=== PATIENT | female | born 1965 | race Hispanic/Latino ===

== ENCOUNTER 2018-06-28 23:56 | Observation (INO) | payer OTHER ==
[~2018-06-28] VITALS: Ht 157.5 cm; Wt 125.6 kg
[2018-06-29] MEDS ORDERED: ACETAMINOPHEN EXTRA STRENGTH 500 MG TABLET ONE (00:15)
[2018-06-29] MEDS ORDERED: BENZONATATE 100 MG CAPSULE PO ONE (00:30)
[2018-06-29 00:32] LABS: BASOPHILS % (AUTO) 0.5 % (0.0-5.0); EOSINOPHILS % (AUTO) 0.3 % (0.0-8.0); HEMATOCRIT 43.3 % (36-48); LYMPHOCYTES % (AUTO) 9.4 % (21.0-51.0); MEAN CORPUSCULAR HEMOGLOBIN 25.6 pg (27.0-33.0); MEAN CORPUSCULAR HGB CONC 33.4 g/dL (32.0-36.0); MEAN CORPUSCULAR VOLUME 76.7 fL (79-99); NEUTROPHILS % (AUTO) 84.8 % (40.0-77.0); PLATELET COUNT (AUTO) 297 K/uL (130-400); RED BLOOD CELL COUNT(AUTO) 5.64 MIL/uL (4.00-5.50); RED CELL DISTRIBUTION WIDTH 16.2 % (11.0-15.5); WHITE BLOOD COUNT (AUTO) 15.9 K/uL (4.8-10.8)
[2018-06-29] MEDS ORDERED: IPRATROPIUM/ALBUTEROL SULFATE 3 ML SOLUTION IH ONE ×2 (00:32→05:04)
[2018-06-29 00:38] LABS: CARBON DIOXIDE 25 mmol/L (21-32); CHLORIDE 99 mmol/L (101-111); CREATININE 0.8 mg/dL (0.5-1.5); GLOMERULAR FILTR. RATE CALC 79 mL/min (>60); GLUCOSE,RANDOM 145 mg/dL (70-105); POTASSIUM 3.6 mmol/L (3.5-5.1); SODIUM SERUM 135 mmol/L (136-145); UREA NITROGEN, BLOOD 9 mg/dL (7-18)
[2018-06-29 00:43] LABS: INR 1.06 (0.85-1.15); PROTHROMBIN TIME 11.1 SEC (9.6-11.6)
[2018-06-29 00:44] LABS: APPEARANCE,URINE Clear (CLEAR); BILIRUBIN,URINE Small (NEGATIVE); COLOR,URINE Dark Yellow (YELLOW); GLUCOSE, URINE (UA) Negative (NEGATIVE); KETONES,URINE Trace mg/dL (NEGATIVE); LEUKOCYTE ESTERASE ,URINE Trace (NEGATIVE); NITRATE,URINE Negative (NEGATIVE); OCCULT BLOOD,URINE Small (NEGATIVE); PH,URINE 6.5 (5.0-8.0); PROTEIN,URINE POS 1+ mg/dL (NEGATIVE)
[2018-06-29 00:47] LABS: RAPID GROUP A STREP NEGATIVE (NEGATIVE)
[2018-06-29 00:51] LABS: ALANINE AMINOTRANSFERASE 39 U/L (12-78); ALBUMIN 3.6 g/dL (3.5-5.0); ASPARTATE AMINOTRANSFERASE 28 U/L (10-37); CREATINE KINASE, TOTAL 58 U/L (21-232); MYOGLOBIN 31 ng/mL (10-92); TOTAL PROTEIN, SERUM 8.6 g/dL (6.0-8.3); TROPONIN I < 0.04 ng/mL (0.00-0.06)
[2018-06-29 01:03] LABS: BACTERIA,URINE None Seen /HPF (None Seen); MUCUS,URINE Few LPF (None Seen); RBC,URINE 0-1 /HPF (0-1); SQUAMOUS EPITHELIAL CELL,UR Rare /HPF (0-2); WBC,URINE 0-1 /HPF (0-1)
[2018-06-29] MEDS ORDERED: AZITHROMYCIN 250 MG TABLET PO ONE (01:44)
[2018-06-29] MEDS ORDERED: CEFTRIAXONE SODIUM 1 GM ONE (01:44)
[2018-06-29] MEDS ORDERED: ALBUTEROL SULFATE 0.083% 2.5 MG/3 ML INH IH ONE (01:56)
[2018-06-29] MEDS ORDERED: BENZOCAINE/MENTH/CETYLPYRD CL 1 EACH LOZENGE MM ONE (03:46)
[2018-06-29 04:40] VITALS: BP 163/98
--- NOTE | 2018-06-29 04:50 | NUR ---
Admission Assessment Received pt from ED per wheelchair with spouse around, pt noted with dry, hacking coughing spell, trying to catch up her breath, RT around provided PRN breathing treatment. Routine admission assessment done, plan of care discuss, made aware on Observation status, 24-48 hours hospital stay depending on all the test & how she responds to treatment. Pt updated with all test being done in ED with all concern questions addressed. Pt verified regarding Flu/Pneu vaccination, refused stated she will think about it. Pt only takes one home medication, entered. Pt denied pain, only slight SOB which breathing PRN treatment has been rendered.
--- NOTE | 2018-06-29 04:50 | NUR ---
Left eye s sclera red with positive yellowish discharge, reported from ED c/s was obtain. Per pt left eye irritation started 2 days prior to admission, denies pain, only constant discharges. Advise pt not to be rubbing his eyes & will see what MD will order for treatment, pending c/s outcome. Addendum: 06/29/18 at 0942 by RUTHIE PADILLA RN RN Amended: Links added.
[2018-06-29] MEDS ORDERED: SODIUM CHLORIDE 0.9% 1000ML 1,000 ML IV ONE (04:52)
[2018-06-29] MEDS ORDERED: LISI10TA7 PO (05:23)
[2018-06-29] MEDS: SODIUM CHLORIDE 0.9% 1000ML 1,000 ML IV SCH ×2 (05:30→16:40)
[2018-06-29] MEDS ORDERED: PHARMACY COMMUNICATION MISC SCH (05:45)
[2018-06-29] MEDS: AZITHROMYCIN 500 MG in SODIUM CHLORIDE 0.9% 250 ML IV SCH (06:00)
[2018-06-29] MEDS: CEFTRIAXONE SODIUM 1 GM IVP SCH (06:00)
[2018-06-29 08:23] VITALS: BP 166/99
[2018-06-29] MEDS: IPRATROPIUM/ALBUTEROL SULFATE 3 ML SOLUTION IH SCH ×3 (11:01→23:20)
[2018-06-29 12:02] VITALS: BP 164/81
--- NOTE | 2018-06-29 15:46 | NUR ---
INITIAL: Met with pt this afternoon to discuss dcp. Pt states that she lives w her spouse. Prior to admission she was independent w ambulation and ADLs. Pt does not own any DME or receive services prior to admission. Per pt she feels safe and comfortable to return [place] at [place]. CM to continue to follow and wait for MD recommendations. Addendum: 06/29/18 at 1547 by SERG ROA Amended: Links added.
[2018-06-29 17:10] VITALS: BP 159/73
[2018-06-29] MEDS: BENZOCAINE/MENTH/CETYLPYRD CL 1 EACH LOZENGE MM PRN (17:26)
[2018-06-29 19:30] VITALS: BP 150/79
[2018-06-29 23:00] VITALS: BP 151/73
[2018-06-30 03:35] VITALS: BP 145/88
[2018-06-30] MEDS ORDERED: AZITHROMYCIN 500MG+NS 250ML 250 ML IV ONE (04:26)
[2018-06-30] MEDS: AZITHROMYCIN 500 MG in SODIUM CHLORIDE 0.9% 250 ML IV SCH (05:37)
[2018-06-30] MEDS: CEFTRIAXONE SODIUM 1 GM IVP SCH (05:37)
[2018-06-30] MEDS: IPRATROPIUM/ALBUTEROL SULFATE 3 ML SOLUTION IH SCH ×4 (06:10→23:17)
[2018-06-30 09:23] VITALS: BP 160/88
[2018-06-30] MEDS: BENZOCAINE/MENTH/CETYLPYRD CL 1 EACH LOZENGE MM PRN (10:21)
[2018-06-30 14:03] VITALS: BP 138/93
[2018-06-30 17:19] VITALS: BP 137/71
[2018-06-30 20:00] VITALS: BP 154/78
--- NOTE | 2018-06-30 22:12 | NUR ---
MD Dr PARSONS came to see pt,prescription for antibiotic written for outpt.treatment.Labs ordered for am.he said if WBc less than 12 pt might go home.
[2018-06-30 23:28] VITALS: BP 156/96
[2018-07-01] MEDS: BENZOCAINE/MENTH/CETYLPYRD CL 1 EACH LOZENGE MM PRN (01:41)
[2018-07-01 04:55] VITALS: BP 152/85
[2018-07-01] MEDS ORDERED: AZITHROMYCIN 500MG+NS 250ML 250 ML IV ONE (05:07)
[2018-07-01 05:18] LABS: HEMATOCRIT 37.1 % (36-48); MEAN CORPUSCULAR HEMOGLOBIN 25.6 pg (27.0-33.0); MEAN CORPUSCULAR HGB CONC 33.4 g/dL (32.0-36.0); MEAN CORPUSCULAR VOLUME 76.5 fL (79-99); NUCLEATED RED BLOOD CELLS 0.1 % (0.0-0.19); PLATELET COUNT (AUTO) 278 K/uL (130-400); RED BLOOD CELL COUNT(AUTO) 4.85 MIL/uL (4.00-5.50); RED CELL DISTRIBUTION WIDTH 15.6 % (11.0-15.5); WHITE BLOOD COUNT (AUTO) 7.7 K/uL (4.8-10.8)
[2018-07-01 05:31] LABS: CREATININE 0.6 mg/dL (0.5-1.5); POTASSIUM 3.1 mmol/L (3.5-5.1)
[2018-07-01] MEDS: CEFTRIAXONE SODIUM 1 GM IVP SCH (05:32)
[2018-07-01] MEDS: AZITHROMYCIN 500 MG in SODIUM CHLORIDE 0.9% 250 ML IV SCH (05:33)
[2018-07-01] MEDS: IPRATROPIUM/ALBUTEROL SULFATE 3 ML SOLUTION IH SCH ×2 (06:07→11:08)
[2018-07-01 08:00] VITALS: BP 151/88
[2018-07-01 12:00] VITALS: BP 146/85
--- NOTE | 2018-07-01 14:56 | NUR ---
call dr. eckert to notify him about the positive cultures in the eye. he ordered gentamicin drops 2 to 3 drops 3x a day, azithyromycin 250 po daily for 5 days and for the patient to be discharge today.
[2018-07-01] MEDS ORDERED: AZIT250T9 PO (16:59)
[2018-07-01] MEDS ORDERED: GENT5DRO32 OP (16:59)
[2018-07-01] MEDS ORDERED: AZITHROMYCIN 250 MG TABLET PO SCH (17:00)
[2018-07-01] MEDS ORDERED: GENTAMICIN SULFATE 0.3% 5ML DROPS OD SCH (21:00)
[2018-07-02] MEDS ORDERED: AZITHROMYCIN 500MG+NS 250ML 250 ML IV SCH (06:00)
== END 2018-07-01 18:31 | disposition home or self-care (01) ==
LOC: EDH 23:56 → EDHIP 06-29 02:38 → 3AH 06-29 04:07
PROVIDERS: ADMIT Internal Medicine; ATTEND Internal Medicine
DX: A41.9 Sepsis, unspecified organism (principal); E66.9 Obesity, unspecified; I10 Essential (primary) hypertension; J18.9 Pneumonia, unspecified organism; Z87.440 Personal history of urinary (tract) infections; Z79.899 Other long term (current) drug therapy
CPT/HCPCS: 36415 ×2; 71046; 80048; 80053; 81001; 82550; 83605; 83874; 84484; 85025; 85027; 85610; 85730; 87040 ×2; 87070; 87088; 87804 ×2; 87880; 93005; 94640 ×11; 94664; 96365; 96366 ×2; 96375; 96376; 99284; A4218 ×2; G0378 ×64; J0456 ×3; J0696 ×4; J7030 ×2

== ENCOUNTER 2019-10-13 12:46 | Inpatient (IN) | payer OTHER ==
[~2019-10-13] VITALS: Ht 152.4 cm; Wt 128.1 kg
[~2019-10-13 12:46] MED LIST: AZIT250T9 PO; GENT5DRO32 OP; LISI10TA7 PO
[2019-10-13] MEDS ORDERED: ONDANSETRON HCL 4 MG/2 ML VIAL ONE (12:56)
[2019-10-13] MEDS ORDERED: SODIUM CHLORIDE 0.9% 1000ML 1,000 ML IV ONE (12:56)
[2019-10-13 13:06] LABS: BASOPHILS % (AUTO) 0.5 % (0.0-5.0); HEMATOCRIT 43.7 % (36-48); LYMPHOCYTES % (AUTO) 12.2 % (21.0-51.0); MEAN CORPUSCULAR HEMOGLOBIN 25.8 pg (27.0-33.0); MEAN CORPUSCULAR HGB CONC 34.3 g/dL (32.0-36.0); MEAN CORPUSCULAR VOLUME 75.2 fL (79-99); MONOCYTES % (AUTO) 6.1 % (3.0-13.0); NEUTROPHILS % (AUTO) 79.6 % (40.0-77.0); PLATELET COUNT (AUTO) 464 K/uL (130-400); RED BLOOD CELL COUNT(AUTO) 5.81 MIL/uL (4.00-5.50); RED CELL DISTRIBUTION WIDTH 14.9 % (11.0-15.5); WHITE BLOOD COUNT (AUTO) 17.4 K/uL (4.8-10.8)
[2019-10-13 13:20] LABS: ALBUMIN 3.7 g/dL (3.5-5.0); BILIRUBIN,TOTAL 1.2 mg/dL (0.2-1.0); CREATININE 1.4 mg/dL (0.5-1.5); TOTAL PROTEIN, SERUM 8.5 g/dL (6.0-8.3)
[2019-10-13 13:23] LABS: POTASSIUM 2.9 mmol/L (3.5-5.1)
[2019-10-13] MEDS ORDERED: MORPHINE SULFATE 2 MG/ML 1ML SYG ONE (21:00)
[2019-10-14] MEDS ORDERED: MORPHINE SULFATE 2 MG/ML 1ML SYG ONE (00:01)
[2019-10-14] MEDS ORDERED: ONDANSETRON HCL 4 MG/2 ML VIAL ONE (00:01)
[2019-10-14] MEDS ORDERED: POTASSIUM CHLORIDE 20MEQ/100ML 100 ML IV ONE (01:14)
[2019-10-14] MEDS ORDERED: LIDOCAINE HCL 1% 20 ML VIAL ONE (01:14)
[2019-10-14 01:35] VITALS: BP 118/72
--- NOTE | 2019-10-14 01:35 | NUR ---
Admission note: Admitted to floor per stretcher. Ambulatory. AOx4. Fully awake ,but feels weak. Placed on bed comfortably with HOBE. Has NGT to right Nares and attached continuously to wall suction machine at low intermittent draining a greenish output - intact and patency checked, secured accordingly. Has PIV site to RAC #20 gauge with Potassium IV via infusion pump at 50 ml/hr. - patent and intact. VS checked and recorded. Full physical assessment done. ( See CPOE flow chart). For surgical consult in AM per report of SOLUTION SPECIALIST ( Mr. Jonny Mathew ) Oriented to room and use of call light. Agreed and verbalized understanding. Policies and procedures explained. Kept monitored and observed for any unsual changes in status. Cared for and needs attended. No apparent distress or discomfort noted.
[2019-10-14 03:37] VITALS: BP 119/77
--- NOTE | 2019-10-14 06:55 | NUR ---
Potassium: 2.9 and moderate amount of pinkish-red coming out from the Vagina Referred to Dr. Thomas with an order to place pt on Hypokalemia NPO Half potassium protocol and to just monitor the vaginal bleeding.
[2019-10-14 07:57] VITALS: BP 110/68
[2019-10-14] MEDS: MORPHINE SULFATE 2 MG/ML 1ML SYG IVP PRN ×2 (11:07→21:54)
[2019-10-14] MEDS: ONDANSETRON HCL 4 MG/2 ML VIAL IVP PRN ×2 (11:07→21:55)
[2019-10-14 11:26] VITALS: BP 112/58
--- NOTE | 2019-10-14 11:47 | NUR ---
CHART CHECK COMPLETED. Pt IS A 53 Y.O. FEMALE ADMITTED SECONDARY TO SMALL BOWEL OBSTRUCTION. Pt HAS A PAST MEDICAL HISTORY SIGNIFICANT FOR HYPERTENSION AND UMBILICAL HERNIA. Pt NPO WITH NG TUBE IN PLACE SECONDARY TO ADMITTING DIAGNOSIS. SKILLED SPEECH THERAPY IS NOT WARRANTED AT THIS TIME. Addendum: 10/14/19 at 1151 by DAVIDSON WHITNEY [facility] Amended: Links added.
[2019-10-14 16:00] VITALS: BP 121/73
--- NOTE | 2019-10-14 17:41 | NUR ---
DCP CM unable to meet with pt, called daughter on facesheet, spoke to Maryuri Crook , discussed dc plans. Pt is independent prior to admission, lives at home with spouse. Denies any equipments/services. Feels safe to go back home, still drives, spouse and daughters able to assist with transportation and needs as necessary. DC plan to home once stable. CM to cont to follow up. Addendum: 10/14/19 at 1743 by CHIRAG HAMMER LVN CM Amended: Links added.
[2019-10-14] MEDS: POTASSIUM CHLORIDE 10MEQ/100ML 100 ML IV PRN ×2 (18:07→23:54)
[2019-10-14 20:00] VITALS: BP 115/80
--- NOTE | 2019-10-14 20:00 | NUR ---
ISSA WEINER ROUNDED VISITED AND EXAMINED PT. WITH ORDERS TO CHANGED CURRENT IVF FROM NS TO LR AT 75 ML/HR. TO MONITOR POTASSIUM AND CONTINUE PER PROTOCOL. TO DO LAB IN AM ( CBC AND BMP). TO GIVE PEPCID 20 MG IV, BID AND TO APPLY SCD'S.
[2019-10-14] MEDS: LACTATED RINGERS 1000ML 1,000 ML IV SCH (21:46)
[2019-10-14] MEDS: LIDOCAINE HCL-MPF 1% 2ML VIAL IV PRN (23:53)
[2019-10-15] VITALS (7 sets, daily range): BP systolic 104–157; BP diastolic 61–94
[2019-10-15] MEDS: POTASSIUM CHLORIDE 10MEQ/100ML 100 ML IV PRN ×3 (02:13→09:05)
[2019-10-15] MEDS: LIDOCAINE HCL-MPF 1% 2ML VIAL IV PRN ×3 (02:13→09:05)
[2019-10-15] MEDS: MORPHINE SULFATE 2 MG/ML 1ML SYG IVP PRN ×3 (03:53→17:29)
[2019-10-15 05:50] LABS: BASOPHILS % (AUTO) 0.4 % (0.0-5.0); EOSINOPHILS % (AUTO) 2.1 % (0.0-8.0); HEMATOCRIT 39.8 % (36-48); LYMPHOCYTES % (AUTO) 13.6 % (21.0-51.0); MEAN CORPUSCULAR HEMOGLOBIN 25.9 pg (27.0-33.0); MEAN CORPUSCULAR HGB CONC 32.7 g/dL (32.0-36.0); MEAN CORPUSCULAR VOLUME 79.4 fL (79-99); MONOCYTES % (AUTO) 5.7 % (3.0-13.0); NEUTROPHILS % (AUTO) 76.5 % (40.0-77.0); PLATELET COUNT (AUTO) 399 K/uL (130-400); RED BLOOD CELL COUNT(AUTO) 5.01 MIL/uL (4.00-5.50); RED CELL DISTRIBUTION WIDTH 15.1 % (11.0-15.5); WHITE BLOOD COUNT (AUTO) 15.1 K/uL (4.8-10.8)
[2019-10-15 05:58] LABS: CREATININE 0.9 mg/dL (0.5-1.5); POTASSIUM 3.1 mmol/L (3.5-5.1)
--- NOTE | 2019-10-15 08:00 | NUR ---
ROUNDS, AM ASSESSMENT.NG TO [facility], OR STAFF HERE, UNDER IMPRESSION PT. WAS GOING TO SURGERY. APPARENTLY SURG, CX. UNTIL COVIC RESULTS ARE IN. PM NURSE NOT AWARE. DR. ARMENDARIZ STATES WILL TAKE TO OR SUNDAY OR SUNDAY. PATIENT INFORMED.
[2019-10-15] MEDS: FAMOTIDINE/PF 20 MG/2 ML VIAL IV SCH (09:05)
--- NOTE | 2019-10-15 09:10 | NUR ---
MEDICATED FOR PAIN TO ABD. NOW
--- NOTE | 2019-10-15 10:00 | NUR ---
UP WITH ASST. SHOWERED
[2019-10-15] MEDS: LACTATED RINGERS 1000ML 1,000 ML IV SCH (15:20)
--- NOTE | 2019-10-15 15:30 | NUR ---
AGAIN MEDICATED FOR PAIN,
--- NOTE | 2019-10-15 18:00 | NUR ---
STATES FEELING BETTER, ABD. A LITTLE SOFTER. NG OUPUT HAS SLOWED DOWN.
[2019-10-16] VITALS (26 sets, daily range): BP systolic 117–197; BP diastolic 55–100
[2019-10-16] MEDS: LACTATED RINGERS 1000ML 1,000 ML IV SCH ×3 (01:25→22:29)
[2019-10-16] MEDS: MORPHINE SULFATE 2 MG/ML 1ML SYG IVP PRN ×2 (01:25→05:16)
[2019-10-16] MEDS: LIDOCAINE HCL-MPF 1% 2ML VIAL IV PRN ×3 (01:49→19:24)
[2019-10-16] MEDS: POTASSIUM CHLORIDE 10MEQ/100ML 100 ML IV PRN ×3 (01:49→19:24)
[2019-10-16] MEDS ORDERED: MORPHINE SULFATE 2 MG/ML 1ML SYG IVP ONE (02:30)
--- NOTE | 2019-10-16 06:45 | NUR ---
0159: Patient complaining that she is still having to much pain to abdomen. I paged Dr Thomas via answering service. 0224: No return call from doctor patient still moaning. Repaged Dr Thomas and made aware of above. Orders received to administer MS 2 mg stat. 0239: MS 2 mg administered IV as ordered 0645: Patient picked up by surgical instrument maker. with chart. Informed nurse patient receiving 10 meq potassium first dose now.
[2019-10-16] MEDS ORDERED: BUPIVACAINE/PF 0.5% 10ML VIAL ONE (07:20)
[2019-10-16] MEDS ORDERED: CEFAZOLIN SODIUM 1 GM VIAL ONE (08:09)
[2019-10-16] MEDS ORDERED: ONDANSETRON HCL 4 MG/2 ML VIAL ONE (08:14)
[2019-10-16] MEDS ORDERED: DEXAMETHASONE SOD PHOSPHATE 10MG/ML 1ML VIAL ONE (08:14)
[2019-10-16] MEDS ORDERED: LIDOCAINE PF 2% 5ML ABBOJECT ONE (08:14)
[2019-10-16] MEDS ORDERED: ROCURONIUM 10MG/1ML SYR 10 MG/ML ML ONE (08:15)
[2019-10-16] MEDS ORDERED: FENTANYL CITRATE PF 50 MCG/1 ML 2ML VIAL ONE (08:15)
[2019-10-16] MEDS ORDERED: MIDAZOLAM HCL 1 MG/ML 2ML VIAL ONE (08:15)
[2019-10-16] MEDS ORDERED: PROPOFOL 10 MG/ML 20ML VIAL IV ONE (08:15)
[2019-10-16] MEDS ORDERED: GLYCOPYRROLATE 1 MG/5 ML SYRINGE ONE (09:20)
[2019-10-16] MEDS ORDERED: NEOSTIGMINE 5MG/5ML SYR IV ONE (09:20)
[2019-10-16] MEDS ORDERED: MEPERIDINE-PF 25 MG/ML SYG ONE ×2 (09:58→10:08)
[2019-10-16] MEDS ORDERED: HYDRALAZINE HCL 20 MG/ML VIAL ONE (10:13)
--- NOTE | 2019-10-16 11:00 | NUR ---
REPORT RECEIVED FROM STAN KIDDEPIC CADENCE ANALYST ROOM,
[2019-10-16] MEDS: FAMOTIDINE/PF 20 MG/2 ML VIAL IV SCH (11:21)
--- NOTE | 2019-10-16 11:30 | NUR ---
PT NOW IN ROOM BP 126/59, HR 83, T.97.5, 02 SATS 96% ON [address] L[address]ERS[address]NG REMAINS IN PLACE AND CONNECTED LOW WALL INTERMITTENT SUCTION .ABD. DRESSING IN PLACE , CLEAN AND DRY, BINDER ON . SCDS APPLIED.
[2019-10-16] MEDS ORDERED: ONDANSETRON HCL 4 MG/2 ML VIAL IVP PRN (12:45)
--- NOTE | 2019-10-16 14:00 | NUR ---
HAS BEEN TEARY, ASKING F ICE AND WANTS TO KNOW WHY NG IS STILL IN.
[2019-10-16] MEDS: MORPHINE SULFATE 4 MG/1ML SYG IV PRN ×3 (14:34→23:57)
[2019-10-16] MEDS: CEFAZOLIN SODIUM 1 GM VIAL IVP SCH ×2 (16:29→23:56)
--- NOTE | 2019-10-16 17:00 | NUR ---
PLACED ON BEDPAN, VOIDED SM. AMT.
--- NOTE | 2019-10-16 18:30 | NUR ---
MEDICATED FOR PAIN. BEDRAILS UP, CALL LIGHT NEAR. INST TO CALL FOR ASST. AA NEEDED
--- NOTE | 2019-10-16 21:55 | NUR ---
called via answering service, informed him that patient arrived at 11 am, and had not voided. Patient did attempt to void, had gotten up to bedside commade but unsuccessful. I did a bladder scan and it's greater then 698ml. Orders received to insert a espinosa catheter due to retention, and order CBC, BMP for the morning. Informed him patient already on LR at 75 mls/hr.
--- NOTE | 2019-10-16 22:15 | NUR ---
Using sterile supples and aspetic tech. inserted 16 Fr F/C, explained procedure to patient prior to inserting F/C. Patient tolerated procedure fair, did have small amount of vaginal bleeding noted. Patient allowed to ask questions prior to procedure. Patient verbalized understanding. 800 ml of dark yellow urine to bedside drainage bag, clear.
[2019-10-17] MEDS: POTASSIUM CHLORIDE 10MEQ/100ML 100 ML IV PRN (01:48)
[2019-10-17] MEDS: LIDOCAINE HCL-MPF 1% 2ML VIAL IV PRN (01:48)
[2019-10-17] MEDS: MORPHINE SULFATE 4 MG/1ML SYG IV PRN ×2 (03:00→06:38)
[2019-10-17 03:39] VITALS: BP 155/80
[2019-10-17 06:12] LABS: BASOPHILS % (AUTO) 0.6 % (0.0-5.0); EOSINOPHILS % (AUTO) 0.4 % (0.0-8.0); HEMATOCRIT 37.8 % (36-48); LYMPHOCYTES % (AUTO) 14.3 % (21.0-51.0); MEAN CORPUSCULAR HEMOGLOBIN 25.7 pg (27.0-33.0); MEAN CORPUSCULAR HGB CONC 31.7 g/dL (32.0-36.0); MEAN CORPUSCULAR VOLUME 80.9 fL (79-99); MONOCYTES % (AUTO) 6.3 % (3.0-13.0); NEUTROPHILS % (AUTO) 72.6 % (40.0-77.0); PLATELET COUNT (AUTO) 360 K/uL (130-400); RED BLOOD CELL COUNT(AUTO) 4.67 MIL/uL (4.00-5.50); RED CELL DISTRIBUTION WIDTH 15.2 % (11.0-15.5)
[2019-10-17 06:20] LABS: CREATININE 0.6 mg/dL (0.5-1.5); POTASSIUM 3.5 mmol/L (3.5-5.1)
[2019-10-17] MEDS ORDERED: MORPHINE SULFATE 2 MG/ML 1ML SYG ONE (06:29)
[2019-10-17 08:02] VITALS: BP 149/81
[2019-10-17] MEDS: CEFAZOLIN SODIUM 1 GM VIAL IVP SCH ×2 (08:53→16:29)
[2019-10-17] MEDS: FAMOTIDINE/PF 20 MG/2 ML VIAL IV SCH (08:53)
[2019-10-17 11:00] VITALS: BP_SYST 139; BP_SYST 149; BP_DIAS 58; BP_DIAS 81
[2019-10-17] MEDS: LACTATED RINGERS 1000ML 1,000 ML IV SCH (11:51)
--- NOTE | 2019-10-17 13:15 | NUR ---
NG TUBE REMOVED NO RESISTANCE NOTED UPON NG TUBE REMOVAL, NG TUBE INTACT. PATIENT TOLERATED NG TUBE REMOVAL WELL.
[2019-10-17 16:00] VITALS: BP 149/97
--- NOTE | 2019-10-17 19:30 | NUR ---
PATIENT RECEIVED IN BED, AAOX3, NO ACUTE DISTRESS NOTED OR C/O PAIN VOICED. POC DISCUSSED WITH PATIENT. INSTRUCTED O COT WITH IS THERAPY WHILE AWAKE. PATIENT IS DTV, INFORMED OF THIS AND SHE VOICED UNDERSTANDING. WILL CONT TO MONITOR CLOSELY. PT IS POD #1 OPEN VENTRAL HERNIA REPAIR. CURRENTLY, DRESSING IS D/I, PT USING ABDOMINAL BINDER.
[2019-10-17 21:10] VITALS: BP 139/76
--- NOTE | 2019-10-17 23:30 | NUR ---
PATIENT VOIDED IN RESTROOM. STATES SHE ALSO NOTED SOME BLOOD IN COMMODE. PATIENT DID AMBULATE BEFORE GOING TO BED. STATES SHE HAS A LOT OF GAS AND KEEPS BURPING A LOT. ENCOURAGED TO CONT WITH AMBULATION TO HELP RELEASE AIR. WILL CONT TO MONITOR.
[2019-10-17 23:37] VITALS: BP 164/79
[2019-10-18] MEDS: MORPHINE SULFATE 4 MG/1ML SYG IV PRN ×2 (00:01→21:18)
[2019-10-18] MEDS: CEFAZOLIN SODIUM 1 GM VIAL IVP SCH ×4 (00:31→23:02)
[2019-10-18 03:54] LABS: HEMATOCRIT 34.6 % (36-48); MEAN CORPUSCULAR HEMOGLOBIN 25.6 pg (27.0-33.0); MEAN CORPUSCULAR HGB CONC 32.1 g/dL (32.0-36.0); MEAN CORPUSCULAR VOLUME 79.9 fL (79-99); RED BLOOD CELL COUNT(AUTO) 4.33 MIL/uL (4.00-5.50); RED CELL DISTRIBUTION WIDTH 14.6 % (11.0-15.5); WHITE BLOOD COUNT (AUTO) 13.5 K/uL (4.8-10.8)
[2019-10-18 04:00] VITALS: BP 158/72
[2019-10-18] MEDS: LACTATED RINGERS 1000ML 1,000 ML IV SCH ×2 (04:45→18:14)
[2019-10-18 08:03] VITALS: BP 146/77
[2019-10-18] MEDS: ENOXAPARIN SODIUM 30 MG/0.3 ML SQ SCH (08:36)
[2019-10-18] MEDS: FAMOTIDINE/PF 20 MG/2 ML VIAL IV SCH (08:36)
[2019-10-18 11:29] VITALS: BP 125/69
[2019-10-18 16:00] VITALS: BP 154/82
[2019-10-18 19:53] VITALS: BP 131/78
--- NOTE | 2019-10-18 20:00 | NUR ---
DOCTOR PARSONS AT THE BEDSIDE. HE LOOKS AT DRESSING AND SPEAKS WITH PATIENT. THE PATIENT WILL PROBABLY GO HOME TODAY IF STABLE.
[2019-10-19 00:23] VITALS: BP 130/76
[2019-10-19] MEDS: MORPHINE SULFATE 4 MG/1ML SYG IV PRN ×3 (02:08→14:50)
[2019-10-19] MEDS: LACTATED RINGERS 1000ML 1,000 ML IV SCH (03:38)
[2019-10-19 03:56] VITALS: BP 133/69
[2019-10-19] MEDS: CEFAZOLIN SODIUM 1 GM VIAL IVP SCH ×2 (05:20→16:12)
[2019-10-19 08:00] VITALS: BP 142/73
[2019-10-19] MEDS: FAMOTIDINE/PF 20 MG/2 ML VIAL IV SCH (11:06)
[2019-10-19] MEDS: ENOXAPARIN SODIUM 30 MG/0.3 ML SQ SCH (11:09)
[2019-10-19 11:33] VITALS: BP 149/77
[2019-10-19 16:00] VITALS: BP 137/79
[2019-10-19 16:44] LABS: APPEARANCE,URINE Clear (CLEAR); BILIRUBIN,URINE Negative (NEGATIVE); COLOR,URINE Dark Yellow (YELLOW); GLUCOSE, URINE (UA) Negative (NEGATIVE); KETONES,URINE Trace mg/dL (NEGATIVE); LEUKOCYTE ESTERASE ,URINE Trace (NEGATIVE); NITRATE,URINE Negative (NEGATIVE); OCCULT BLOOD,URINE Moderate (NEGATIVE); PH,URINE 6.5 (5.0-8.0); PROTEIN,URINE POS 1+ mg/dL (NEGATIVE)
[2019-10-19 16:49] LABS: BACTERIA,URINE Rare /HPF (None Seen); SQUAMOUS EPITHELIAL CELL,UR Few /HPF (0-2)
[2019-10-19 16:50] LABS: MUCUS,URINE Rare LPF (None Seen)
[2019-10-19 20:00] VITALS: BP 134/75
--- NOTE | 2019-10-19 21:30 | NUR ---
DISCHARGE PATIENT AWAKE AND ALERT. VOICES ALL NEEDS. NO COMPLAINTS OF PAIN VOICED AT THIS TIME. VITALS STABLE. AFEBRILE. DISCHARGE INSTRUCTIONS GIVEN TO PATIENT. PATIENT VERBALIZED UNDERSTANDING OF ALL EDUCATION GIVEN VIA TEACH BACK. INCLUDING SIDE EFFECTS ON MOTRIN 800MG PO SIDE EFFECTS. DRESSING REMOVED. 24 JANE INTACT AND WELL APPROXIMATED. ABD BINDER IN PLACE. NO SIGNS OF DISTRESS NOTED UPON DISCHARGE. PATIENT LEFT VIA WHEELCHAIR TO PRIVATE CAR. ALL BELONGINGS TAKEN WITH. Addendum: 10/20/19 at 0031 by IAN SANTANA RN RN Amended: Links added.
== END 2019-10-19 21:30 | disposition home or self-care (01) | DRG 354 ==
LOC: EDH 12:46 → EDHIP 16:02 → 3CH 10-14 01:02
PROVIDERS: ADMIT Internal Medicine; ATTEND Internal Medicine
PROC: 0D9670Z Drainage of Stomach with Drainage Device, Via Natural or Artificial Opening (ICD-10-PCS; 2019-10-14)
PROC: 0WQF0ZZ Repair Abdominal Wall, Open Approach (ICD-10-PCS; principal; 2019-10-16 08:13)
DX: K43.6 Other and unspecified ventral hernia with obstruction, without gangrene (principal); Z68.43 Body mass index [BMI] 50.0-59.9, adult; K43.0 Incisional hernia with obstruction, without gangrene; E66.01 Morbid (severe) obesity due to excess calories; I10 Essential (primary) hypertension; E11.9 Type 2 diabetes mellitus without complications; K42.0 Umbilical hernia with obstruction, without gangrene; D72.829 Elevated white blood cell count, unspecified; E87.6 Hypokalemia; N28.9 Disorder of kidney and ureter, unspecified; E86.0 Dehydration; K57.90 Diverticulosis of intestine, part unspecified, without perforation or abscess without bleeding; Z20.828 Contact with and (suspected) exposure to other viral communicable diseases; Z90.710 Acquired absence of both cervix and uterus; Z90.49 Acquired absence of other specified parts of digestive tract
CPT/HCPCS: 36415; 74176; 80048; 80053; 81001; 82948; 83690; 84132; 85025; 85027; A4344; G0378; J0360; J0690; J1100; J1650; J2001; J2175; J2250; J2270; J2405; J2704; J2710; J3010; J3480; J3490; J7030; J7120; U0003